=== PATIENT | male | born 1965 | race American Indian/Alaskan Native ===

== ENCOUNTER 2016-12-11 14:58 | Emergency (ER) | payer OTHER ==
[2016-12-11 16:00] LABS: Basophils % (Auto) 1.2 % (0.0-1.8); Eosinophils % (Auto) 2.3 % (0.0-4.3); Hematocrit 45.5 % (35.5-45.6); Mean Corpuscular HGB Conc 33 % (32-34); Mean Corpuscular Hemoglobin 26 pg (28-32); Mean Corpuscular Volume 80 fl (84-94); Platelet Count 168 K/mm3 (140-440); Red Cell Distribution Width 14.2 % (13.2-15.2); White Blood Count 6.2 K/mm3 (4.5-11.0)
[2016-12-11] MEDS ORDERED: APRESOLINE IV ONE ×3 (16:30→19:21)
--- NOTE | 2016-12-11 16:46 | Emergency Department Report ---
HPI - General Chief Complaint: High BP Time Seen by Provider: 12/11/16 16:27 - HPI HPI: This is a 51-year-old -[place] male presents emergency Department from the beam [facility] with the complaint of elevated blood pressure. The patient does not have any history of hypertension but does have a family history of significant hypertension. He was at the [facility] saw operator for evaluation of a right-sided cataract for surgical intervention and was noted to have a blood pressure with a systolic above 200. He is not on any blood pressure medications as he has never been diagnosed with hypertension and otherwise does not have any other past medical history. No recent travel or sick contacts at home. He denies any headache, vision change, chest pain, shortness of breath. He did not take anything for his symptoms prior to presentation. He denies tobacco abuse or any illicit drug use. He does drink multiple caffeinated sodas each day. ED Past Medical Hx - Past Medical History Previous Medical History?: Yes Additional medical history: Cataract right eye - Surgical History Past Surgical History?: No - Social History Smoking Status: Never Smoker Substance Use Type: None - Medications Home Medications: Home Medications Medication Instructions Recorded Confirmed Last Taken Type amLODIPine [Norvasc] 5 mg PO DAILY #15 tab 12/11/16 Unknown Rx metFORMIN [Glucophage] 500 mg PO BID #40 tablet 12/11/16 Unknown Rx ED Review of Systems ROS: Stated complaint: HBP Other details as noted in HPI Comment: All other systems reviewed and negative Constitutional: denies: chills, fever Eyes: denies: eye pain, eye discharge, vision change ENT: denies: ear pain, throat pain Respiratory: denies: cough, shortness of breath, wheezing Cardiovascular: denies: chest pain, palpitations Gastrointestinal: denies: abdominal pain, nausea, diarrhea Genitourinary: denies: urgency, dysuria Musculoskeletal: denies: back pain, joint swelling, arthralgia Skin: denies: rash, lesions Neurological: denies: headache, weakness, paresthesias Physical Exam - Physical Exam Vital Signs: Vital Signs 12/11/16 15:34 Temperature 98.3 F Pulse Rate 70 Respiratory 20 Rate Blood Pressure 198/113 O2 Sat by Pulse 100 Oximetry Physical Exam: GENERAL: The patient is well-developed well-nourished. HEENT: Normocephalic. Atraumatic. Extraocular motions are intact. Patient has moist mucous membranes. Pupils equal reactive to light bilaterally. NECK: Supple. Trachea is midline. CHEST/LUNGS: Clear to auscultation. There is no respiratory distress noted. HEART/CARDIOVASCULAR: Regular. There is no tachycardia. There is no gallop rub or murmur. ABDOMEN: Abdomen is soft, nontender. Patient has normal bowel sounds. There is no abdominal distention. SKIN: Skin is warm and dry. NEURO: The patient is awake, alert, and oriented. The patient is cooperative. The patient has no focal neurologic deficits. The patient has normal speech. Cranial nerves II through XII grossly intact. MUSCULOSKELETAL: There is no tenderness or deformity. There is no limitation range of motion. There is no evidence of acute injury. 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 Patient did present with some hypertensive urgency here. An IV was placed and he was given 10 mg of hydralazine followed by 2 different 5 mg doses. Eventually his blood pressure came down to a much more reasonable level. During his workup he was also found to have elevated blood sugar of about 350. This appears consistent with new- onset diabetes. He does not have any significant elevated anion gap and does not appear to be in diabetic ketoacidosis or HHNK. He was given a small amount of IV insulin and upon reevaluation his blood sugar was down to about 140. Patient was reevaluated multiple times over multiple hours and has remained asymptomatic. He was seen ambulatory in the emergency department and appeared stable while doing so. He will be started on Norvasc for blood pressure and metformin for blood sugar. We discussed dietary changes and lifestyle changes to make for both his blood pressure and diabetes. He was given multiple referrals for primary care. We discussed keeping blood sugar and blood pressure log. He will return to the ER with any worsening of symptoms or any acute distress. - Differential Diagnosis diabetes mellitus, hypertension, DKA, HHNK Critical Care Time: No Critical care attestation.: If time is entered above; I have spent that time in minutes in the direct care of this critically ill patient, excluding procedure time. ED Disposition Clinical Impression: Diabetes mellitus, new onset Hypertension Qualifiers: Hypertension type: essential hypertension Qualified Code(s): I10 - Essential ( primary) hypertension Disposition: TO HOME OR SELFCARE Is pt being admited?: No Condition: Stable Instructions: How to Check Your Blood Sugar (ED), Diabetes Mellitus Type 2 in Adults (ED), Hypertension (ED) Additional Instructions: Please follow-up with a primary care physician in the next few days. Return to the emergency department with any worsening of your symptoms or any acute distress. Try to stay away from foods that are high in salt and caffeinated products to help with her blood pressure. Keep a blood pressure log. I have started you on a blood pressure medication: Norvasc to be taken once daily. Try to stay away from foods that are high in sugar, carbohydrate and starches to help with your blood sugar. Keep a blood sugar log. I have started you on a diabetes medication called metformin to be taken twice daily. Prescriptions: amLODIPine [Norvasc] 5 mg PO DAILY #15 tab metFORMIN [Glucophage] 500 mg PO BID #40 tablet Referrals: PRIMARY CARE, [Primary Care Provider] - 3-5 Days GIA SULLIVAN MD [Staff Physician] - 3-5 Days JAZMIN OROZCO MD [Staff Physician] - 3-5 Days GRICELDA VILLARREAL MD [Staff Physician] - 3-5 Days Time of Disposition: 19:41
[2016-12-11 16:59] LABS: Anion Gap 16 mmol/L; BUN/Creatinine Ratio 14.44; Blood Urea Nitrogen 13 mg/dL (9-20); Calcium 9.8 mg/dL (8.4-10.2); Carbon Dioxide 27 mmol/L (22-30); Chloride 97.6 mmol/L (98-107); Glucose 356 mg/dL (75-100); Potassium 4.5 mmol/L (3.6-5.0); Sodium 136 mmol/L (137-145)
[2016-12-11 20:05] VITALS: BP 149/99
== END 2016-12-11 19:50 | disposition home or self-care (01) ==
LOC: ED 14:58
DX: I10 Essential (primary) hypertension (principal); E11.9 Type 2 diabetes mellitus without complications
CPT/HCPCS: 36415; 80048; 82962; 85025; 96374; 96375; 96376; 99283; J0360; J1815

== ENCOUNTER 2019-06-06 05:11 | Emergency (ER) | payer SELFPAY ==
[2019-06-06 05:22] VITALS: BP 152/97
--- NOTE | 2019-06-06 10:41 | Emergency Department Report ---
ED Laceration HPI - HPI Chief Complaint: Wound/Laceration Stated Complaint: LACERATIONS TO BOTH THUMBS Time Seen by Provider: 06/06/19 10:26 Location: Upper Extremity (bilateral thumb) Severity: mild Tetanus Status: Up to Date Laceration Symptoms: Yes Pain, No Foreign Body Sensation, No Numbness, No Weakness Other History: This is a 53-year-old male with a past medical history of diabetes hypertension and takes medication daily presents to ED complaining of small abrasions to both of his thumbs. 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 Patient states he was able to put on a glove and keep working last night. Patient states that being that he was diabetic and waited coming to the ER to be evaluated. Bleeding stopped shortly after incident. ED Review of Systems ROS: Stated complaint: LACERATIONS TO BOTH THUMBS Other details as noted in HPI Comment: All other systems reviewed and negative ED Past Medical Hx - Past Medical History Previous Medical History?: Yes Hx Hypertension: Yes Hx Diabetes: Yes (new onset) Additional medical history: Cataract right eye - Surgical History Past Surgical History?: No - Social History Smoking Status: Never Smoker Substance Use Type: None - Medications Home Medications: Home Medications Medication Instructions Recorded Confirmed Last Taken Type amLODIPine 10 mg PO QDAY #30 tablet 12/14/16 Unknown Rx hydrALAZINE [Apresoline TAB] 10 mg PO Q8HR #90 tablet 12/14/16 Unknown Rx lisinopriL [Zestril TAB] 40 mg PO QDAY #30 tablet 12/14/16 Unknown Rx metFORMIN [Glucophage] 500 mg PO BIDDIAB #60 tablet 12/14/16 Unknown Rx cephALEXin [Keflex] 500 mg PO Q12HR #10 cap 06/06/19 Unknown Rx Laceration Physical Exam - Exam General: Vital signs noted. No distress. Alert and acting appropriately. Wound Length (cm): 0 Laceration Location: Upper Extremity Laceration Exam: Yes Normal Distal CMS, No Foreign Body, No Exposed Tendon, Vessel, or Nerve, No Tendon Injury ED Course Vital Signs 06/06/19 05:17 Temperature 97.6 F Pulse Rate 80 Respiratory 18 Rate Blood Pressure 152/97 O2 Sat by Pulse 98 Oximetry ED Medical Decision Making - Medical Decision Making 53-year-old male presents with mild abrasion to bilateral thumb. Abrasions were cleaned patient band aid applied. There was no foreign object in the small lacerations. Laceration suture repair was not needed as discussed for small cuts about 1 mm. Vital signs are normal patient advised to follow-up with primary care physician. Short course of antibiotics given Critical care attestation.: If time is entered above; I have spent that time in minutes in the direct care of this critically ill patient, excluding procedure time. ED Disposition Clinical Impression: Finger abrasion, non-infected Disposition: TO HOME OR SELFCARE Is pt being admited?: No Does the pt Need Aspirin: No Condition: Stable Instructions: Abrasion (ED) Additional Instructions: Make sure to follow up with the primary care physician as discussed. Take all your medications as you've been prescribed. If you have any worsening symptoms or develop new symptoms please return to ED immediately. Prescriptions: cephALEXin [Keflex] 500 mg PO Q12HR #10 cap Referrals: PRIMARY CARE, [Primary Care Provider] - 3-5 Days Forms: Accompanied Note, Work/School Release Form(ED) Time of Disposition: 10:41
== END 2019-06-06 11:09 | disposition home or self-care (01) ==
LOC: ED 05:11
DX: S60.311A Abrasion of right thumb, initial encounter (principal); S60.312A Abrasion of left thumb, initial encounter; X58.XXXA Exposure to other specified factors, initial encounter; Y93.89 Activity, other specified; Y92.89 Other specified places as the place of occurrence of the external cause; Y99.8 Other external cause status
CPT/HCPCS: 99282

== ENCOUNTER 2022-01-03 14:38 | Emergency (ER) | payer SELFPAY ==
[2022-01-03 15:32] VITALS: BP 180/100
--- NOTE | 2022-01-03 16:15 | XRay Report ---
CHEST 1 VIEW 01/03/2022 4:01 PM INDICATION / CLINICAL INFORMATION: syncope. COMPARISON: None available. FINDINGS: SUPPORT DEVICES: None. HEART / MEDIASTINUM: No significant abnormality. LUNGS / PLEURA: No significant pulmonary or pleural abnormality. No pneumothorax. ADDITIONAL FINDINGS: No significant additional findings. IMPRESSION: 1. No acute findings. Normal AP chest. Signer Name: Aldair Bhatti Jr, MD Signed: 01/03/2022 4:10 PM Workstation Name: [id number]
--- NOTE | 2022-01-03 16:41 | Emergency Department Report ---
ED General Adult HPI - General Chief complaint: Syncope Stated complaint: SYNCOPAL EPISODE Time Seen by Provider: 01/03/22 15:03 Source: EMS Mode of arrival: Stretcher Limitations: No Limitations - History of Present Illness Initial comments: Patient presents to the emergency department for syncopal episode. Patient was working outside in the heat when he passed out. Patient denies any chest pain prior to or after the episode. He complains of seeing white spots prior to passing out. Denies shortness of breath, abdominal pain, headache. -: Sudden Severity scale (0 -10): 0 Consistency: now resolved Improves with: none Worsens with: none Associated Symptoms: denies other symptoms Treatments Prior to Arrival: none - Related Data Previous Rx's Medication Instructions Recorded Last Taken Type amLODIPine 10 mg PO QDAY #30 tablet 12/14/16 Unknown Rx hydrALAZINE [Apresoline TAB] 10 mg PO Q8HR #90 tablet 12/14/16 Unknown Rx lisinopriL [Zestril TAB] 40 mg PO QDAY #30 tablet 12/14/16 Unknown Rx metFORMIN [Glucophage] 500 mg PO BIDDIAB #60 tablet 12/14/16 Unknown Rx cephALEXin [Keflex] 500 mg PO Q12HR #10 cap 06/06/19 Unknown Rx amLODIPine [Norvasc] 10 mg PO DAILY #30 tab 01/03/22 Unknown Rx Allergies Allergy/AdvReac Type Severity Reaction Status Date / Time No Known Allergies Allergy Verified 01/03/22 14:55 ED Review of Systems ROS: Stated complaint: SYNCOPAL EPISODE Other details as noted in HPI Comment: All other systems reviewed and negative Constitutional: denies: chills, fever Eyes: denies: eye pain, eye discharge, vision change ENT: denies: ear pain, throat pain Respiratory: denies: cough, shortness of breath, wheezing Cardiovascular: denies: chest pain, palpitations Endocrine: no symptoms reported Gastrointestinal: denies: abdominal pain, nausea, diarrhea Genitourinary: denies: urgency, dysuria Musculoskeletal: denies: back pain, joint swelling, arthralgia Skin: denies: rash, lesions Neurological: denies: headache, weakness, paresthesias Psychiatric: denies: anxiety, depression Hematological/Lymphatic: denies: easy bleeding, easy bruising ED Past Medical Hx - Past Medical History Hx Hypertension: Yes Hx Diabetes: Yes Additional medical history: Cataracts bilaterally - Surgical History Additional Surgical History: Cataract surgery - Social History Smoking Status: Never Smoker - Medications Home Medications: Home Medications Medication Instructions Recorded Confirmed Last Taken Type amLODIPine 10 mg PO QDAY #30 tablet 12/14/16 Unknown Rx hydrALAZINE [Apresoline TAB] 10 mg PO Q8HR #90 tablet 12/14/16 Unknown Rx lisinopriL [Zestril TAB] 40 mg PO QDAY #30 tablet 12/14/16 Unknown Rx metFORMIN [Glucophage] 500 mg PO BIDDIAB #60 tablet 12/14/16 Unknown Rx cephALEXin [Keflex] 500 mg PO Q12HR #10 cap 06/06/19 Unknown Rx amLODIPine [Norvasc] 10 mg PO DAILY #30 tab 01/03/22 Unknown Rx ED Physical Exam - General Limitations: No Limitations General appearance: alert, in no apparent distress - Head Head exam: Present: atraumatic, normocephalic - Eye Eye exam: Present: normal appearance, PERRL, EOMI - ENT ENT exam: Present: mucous membranes moist - Neck Neck exam: Present: normal inspection - Respiratory Respiratory exam: Present: normal lung sounds bilaterally. Absent: respiratory distress - Cardiovascular Cardiovascular Exam: Present: regular rate, normal rhythm. Absent: systolic murmur, diastolic murmur, rubs, gallop - GI/Abdominal GI/Abdominal exam: Present: soft, normal bowel sounds. Absent: distended, tende rness - Rectal Rectal exam: Present: deferred - Extremities Exam Extremities exam: Present: normal inspection - Back Exam Back exam: Present: normal inspection - Neurological Exam Neurological exam: Present: alert, oriented X3, CN II-XII intact, normal gait, other (Finger-nose, [id number], rapid hand movements intact). Absent: motor sensory deficit - Psychiatric Psychiatric exam: Present: normal affect, normal mood - Skin Skin exam: Present: warm, dry, intact, normal color. Absent: rash ED Course Vital Signs 01/03/22 01/03/22 14:39 15:24 Temperature 98.1 F 98.4 F Pulse Rate 58 L 84 Respiratory 18 18 Rate Blood Pressure 180/100 Blood Pressure 143/90 180/100 [Left] O2 Sat by Pulse 96 98 Oximetry ED Medical Decision Making - Lab Data Result diagrams: 01/03/22 16:11 01/03/22 16:11 Lab Results 01/03/22 01/03/22 01/03/22 Range/Units 15:21 16:11 16:11 WBC 7.0 (4.5-11.0) K/mm3 RBC 5.79 H (3.65-5.03) M/mm3 Hgb 15.9 H (11.8-15.2) gm/dl Hct 48.0 H (35.5-45.6) % MCV 83 L (84-94) fl MCH 28 (28-32) pg MCHC 33 (32-34) % RDW 14.0 (13.2-15.2) % Plt Count 176 (140-440) K/mm3 Lymph % (Auto) 9.6 L (13.4-35.0) % Dixie % (Auto) 4.8 (0.0-7.3) % Eos % (Auto) 1.7 (0.0-4.3) % Baso % (Auto) 0.8 (0.0-1.8) % Lymph # (Auto) 0.7 L (1.2-5.4) K/mm3 Dixie # (Auto) 0.3 (0.0-0.8) K/mm3 Eos # (Auto) 0.1 (0.0-0.4) K/mm3 Baso # (Auto) 0.1 (0.0-0.1) K/mm3 Seg Neutrophils % 83.1 H (40.0-70.0) % Seg Neutrophils # 5.9 (1.8-7.7) K/mm3 D-Dimer 296.55 H (0-234) ng/mlDDU Sodium (137-145) mmol/L Potassium (3.6-5.0) mmol/L Chloride (98-107) mmol/L Carbon Dioxide (22-30) mmol/L Anion Gap mmol/L BUN (9-20) mg/dL Creatinine (0.8-1.3) mg/dL Estimated GFR ml/min BUN/Creatinine Ratio % Glucose (75-100) mg/dL POC Glucose 238 H (70-105) mg/dL Calcium (8.4-10.2) mg/dL Total Bilirubin (0.1-1.2) mg/dL AST (5-40) units/L ALT (7-56) units/L Alkaline Phosphatase (35-129) units/L Troponin T (0.00-0.029) ng/mL Total Protein (6.3-8.2) g/dL Albumin (3.9-5) g/dL Albumin/Globulin Ratio % 01/03/ Range/Units 16:11 WBC (4.5-11.0) K/mm3 RBC (3.65-5.03) M/mm3 Hgb (11.8-15.2) gm/dl Hct (35.5-45.6) % MCV (84-94) fl MCH (28-32) pg MCHC (32-34) % RDW (13.2-15.2) % Plt Count (140-440) K/mm3 Lymph % (Auto) (13.4-35.0) % Dixie % (Auto) (0.0-7.3) % Eos % (Auto) (0.0-4.3) % Baso % (Auto) (0.0-1.8) % Lymph # (Auto) (1.2-5.4) K/mm3 Dixie # (Auto) (0.0-0.8) K/mm3 Eos # (Auto) (0.0-0.4) K/mm3 Baso # (Auto) (0.0-0.1) K/mm3 Seg Neutrophils % (40.0-70.0) % Seg Neutrophils # (1.8-7.7) K/mm3 D-Dimer (0-234) ng/mlDDU Sodium 139 (137-145) mmol/L Potassium 5.4 H (3.6-5.0) mmol/L Chloride 105.0 (98-107) mmol/L Carbon Dioxide 23 (22-30) mmol/L Anion Gap 16 mmol/L BUN 13 (9-20) mg/dL Creatinine 1.2 (0.8-1.3) mg/dL Estimated GFR > 60 ml/min BUN/Creatinine Ratio 11 % Glucose 264 H (75-100) mg/dL POC Glucose (70-105) mg/dL Calcium 9.2 (8.4-10.2) mg/dL Total Bilirubin 0.40 (0.1-1.2) mg/dL AST 34 (5-40) units/L ALT 25 (7-56) units/L Alkaline Phosphatase 149 H (35-129) units/L Troponin T < 0.010 (0.00-0.029) ng/mL Total Protein 7.6 (6.3-8.2) g/dL Albumin 4.1 (3.9-5) g/dL Albumin/Globulin Ratio 1.2 % - EKG Data -: EKG Interpreted by Ga EKG shows normal: sinus rhythm Rate: normal - EKG Data Interpretation: other (Inverted T waves present on EKG. Consistent with EKG from November ) - Radiology Data Radiology results: report reviewed Critical care attestation.: If time is entered above; I have spent that time in minutes in the direct care of this critically ill patient, excluding procedure time. ED Disposition Clinical Impression: Vasovagal episode, Thyroid nodule, Hypertension Disposition: 01 HOME / SELF CARE / HOMELESS Is pt being admited?: No Does the pt Need Aspirin: No Condition: Stable Instructions: Syncope (ED), Syncope, Hypertension (ED), Hypertension, Adult, Thyroid Nodule Additional Instructions: Return if worse Please follow-up for further evaluation of your thyroid nodule with your primary care physician Referrals: ALEJO CASTLE MD [Primary Care Provider] - 3-5 Days Time of Disposition: 19:17
[2022-01-03 17:03] LABS: Alanine Aminotransferase 25 units/L (7-56); Albumin 4.1 g/dL (3.9-5); BUN/Creatinine Ratio 11; Blood Urea Nitrogen 13 mg/dL (9-20); Calcium 9.2 mg/dL (8.4-10.2); Hemolysis Index 191
--- NOTE | 2022-01-03 17:04 | Cat Scan Report ---
CT head/brain wo con INDICATION: syncope. TECHNIQUE: Routine CT head. All CT scans at this location are performed using CT dose reduction for A THIEN by means of automated exposure control. COMPARISON: None. FINDINGS: Intracranial: Bell-white matter differentiation is maintained. No intracranial hemorrhage. No extra a xial collection. No hydrocephalus. No herniation. Sinuses: There is partial opacification of the anterior ethmoid air cells with opacification of the l eft infundibulum and hiatus semilunaris. Minimal mucosal thickening is also seen within the inferior medial frontal sinuses. Mastoid air cells are clear. Left nabila bullosa, common anatomic variant. Orbits: Globes are intact. Calvarium: No acute fracture. IMPRESSION: 1. No acute intracranial abnormality. 2. Left ethmoid sinus disease. Signer Name: London Aldridge MD Signed: 01/03/2022 4:59 PM Workstation Name: [id number]
[2022-01-03 17:21] LABS: Basophils # (Auto) 0.1 K/mm3 (0.0-0.1); Basophils % (Auto) 0.8 % (0.0-1.8); Eosinophils # (Auto) 0.1 K/mm3 (0.0-0.4); Eosinophils % (Auto) 1.7 % (0.0-4.3); Hemoglobin 15.9 gm/dl (11.8-15.2); Lymphocytes # (Auto) 0.7 K/mm3 (1.2-5.4); Lymphocytes % (Auto) 9.6 % (13.4-35.0); Mean Corpuscular HGB Conc 33 % (32-34); Mean Corpuscular Volume 83 fl (84-94); Monocytes # (Auto) 0.3 K/mm3 (0.0-0.8); Monocytes % (Auto) 4.8 % (0.0-7.3); Platelet Count 176 K/mm3 (140-440); Red Blood Count 5.79 M/mm3 (3.65-5.03)
[2022-01-03] MEDS ORDERED: SODIUM CHLORIDE 0.9% 1000 ML 1,000 ML IV ONE (17:29)
--- NOTE | 2022-01-03 19:00 | Cat Scan Report ---
CTA CHEST WITH CONTRAST INDICATION / CLINICAL INFORMATION: syncope with elevated d dimer 100ml of [id number]. TECHNIQUE: Axial CT images were obtained through the chest after injection of IV contrast. 3 plane OR P and/or 3D reconstructions were produced. All CT scans at this location are performed using CT dose reduction for ALARA by means of automated exposure control. COMPARISON: None available. FINDINGS: PULMONARY EMBOLUS: None. THORACIC AORTA: No significant abnormality. HEART: No significant abnormality. CORONARY ARTERY CALCIFICATION: Absent -- None. MEDIASTINUM / JACOBY: No significant abnormality. PLEURA: No pleural effusion. No pneumothorax. LUNGS: No acute air space or interstitial disease. ADDITIONAL FINDINGS: There is a 1.1 cm hypodense lesion in the right thyroid lobe. UPPER ABDOMEN: No acute findings. SKELETAL STRUCTURES: No significant osseous abnormality. IMPRESSION: 1. No CT evidence for pulmonary embolism. 2. No acute findings. 3. Incidental thyroid nodule in the right lobe measuring 1.1 cm in a patient equal to or over age 35. Recommendation based on ACR guidelines: Further evaluation with ultrasound is at physician's discret ion. Signer Name: Donny Anderson MD Signed: 01/03/2022 6:55 PM Workstation Name: [id number]
--- NOTE | 2022-01-06 10:09 | Electrocardiograph Report ---
[facility] Test Date: 2022-01-03 Test Time: 15:11:30 Pat Name: FORTUNATO NGUYEN Department: Room: Gender: M Treatment Technician: DAVID : 1965 Requested By: LACIE HOOPER Order Number: [id number] Reading MD: Danuta Alexander Measurements Intervals [place] Rate: 87 P: 87 MN: 140 QRS: 24 QRSD: 77 T: 65 QT: 350 QTc: 422 Interpretive Statements Sinus rhythm Probable left atrial enlargement Nonspecific T abnrm, anterolateral leads No previous ECG available for comparison Electronically Signed On 01-06-2022 10:09:06 EDT by Danuta Alexander
== END 2022-01-03 19:37 | disposition home or self-care (01) ==
LOC: ED 14:38
DX: R55 Syncope and collapse (principal); E04.1 Nontoxic single thyroid nodule; I10 Essential (primary) hypertension; E11.9 Type 2 diabetes mellitus without complications; Z79.899 Other long term (current) drug therapy
CPT/HCPCS: 36415; 70450; 71045; 71275; 80053; 82962; 84484; 85025; 85379; 93005; 96360; 99285; J7030; Q9967